=== PATIENT | female | born 1975 | race Caucasian/White ===

== ENCOUNTER 2016-10-19 13:14 | Emergency (ER) | payer BC ==
[2016-10-19] MEDS ORDERED: SODIUM CHLORIDE 0.9% 1,000 ML ONE (14:21)
[2016-10-19] MEDS ORDERED: LORAZEPAM 2 MG/ML VIAL ONE (14:32)
[2016-10-19] MEDS ORDERED: LIDOCAINE 2% VISC 15 ML UDC ONE (16:36)
[2016-10-19] MEDS ORDERED: ALU/MAG/SIM 30 ML UDC ONE (16:36)
[2016-10-19] MEDS ORDERED: KETOROLAC 30 MG/ML VIAL ONE (16:36)
== END 2016-10-19 17:42 | disposition home or self-care (01) ==
LOC: ER 13:14
CPT/HCPCS: 36415; 70450; 71020; 80053; 82553; 84484; 85025; 85610; 85730; 93005; 96361; 96374; 96375